=== PATIENT | female | born 1960 | race Caucasian/White ===

== ENCOUNTER 2024-08-28 20:07 | Outpatient (CLI) | payer OTHER, SELFPAY | END 2024-08-28 20:08 | disposition home or self-care (01) | PROVIDERS: Visit Provider Internal Medicine | DX: G47.33 Obstructive sleep apnea (adult) (pediatric) (principal); R09.02 Hypoxemia | CPT/HCPCS: 95811 ==

== ENCOUNTER 2025-06-10 10:35 | Outpatient (CLI) | payer BC, SELFPAY ==
--- NOTE | 2025-06-10 11:00 | CRLHL7_ITS ---
For Patients: As a result of the Century Cures Act, medical imaging exams and procedure reports are released immediately into your electronic medical record. You may view this report before your referring provider. If you have questions, please contact your health care provider. INDICATION: Malignant neoplasm, left upper lobe TECHNIQUE: Volumetric helical scanning of the thorax was performed without IV contrast material. Coronal and sagittal reconstructions were obtained. COMPARISON: Chest CT scans of 11/11/2024 and 08/14/2024 FINDINGS: An unchanged 8 mm left upper lobe nodule is demonstrated on image 34 of series 3. Mild left upper lobe fibrosis is again demonstrated. No new or enlarged nodule is demonstrated. Emphysema is again demonstrated. There is no significant airway abnormality. No pleural effusion is demonstrated. There is no mediastinal or hilar lymphadenopathy. Thoracolumbar stabilization rods and pedicle screws are again demonstrated. The heart size is normal. Images of the upper abdomen are unremarkable except for postop changes of cholecystectomy. IMPRESSION: 1. Noncalcified 8 mm left lower lobe nodule, unchanged since 08/14/2024. No metastatic lesion evident. 2. Emphysema and left upper lobe fibrosis. Please note that all CT scans at this facility use dose modulation, iterative reconstruction, and/or weight-based dosing when appropriate to reduce radiation dose to as low as reasonably achievable. Dictated by Davey Gautam MD @ 06/11/2025 10:31:01 AM (Electronically Signed)
== END 2025-06-10 10:36 | disposition home or self-care (01) ==
LOC: CT 10:42
PROVIDERS: Visit Provider Internal Medicine
DX: C34.12 Malignant neoplasm of upper lobe, left bronchus or lung (principal); R91.1 Solitary pulmonary nodule; J43.9 Emphysema, unspecified; J84.10 Pulmonary fibrosis, unspecified
CPT/HCPCS: 71250